=== PATIENT | male | born 1995 | race Caucasian/White ===

== ENCOUNTER 2017-03-12 20:03 | Emergency (ER) | payer MEDICAID, OTHER ==
[~2017-03-12] VITALS: Ht 188 cm; Wt 82.3 kg
[~2017-03-12 20:03] MED LIST: CARB200 PO; FLON0.053; LITH450 PO; MONT10TA2 PO
[2017-03-12 20:12] VITALS: BP 172/92; PULSE 110; RESP 22; TEMP 98.1; O2SAT 98
[2017-03-12] MEDS ORDERED: LORazepam 1 MG TAB PO ONE (20:30)
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
[2017-03-12] MEDS ORDERED: VIST25CA PO (20:54)
[2017-03-12 20:59] VITALS: BP 112/61; PULSE 92; RESP 18; TEMP 98.2; O2SAT 98
== END 2017-03-12 21:12 | disposition home or self-care (01) ==
LOC: PHED 20:03
DX: S00.01XA Abrasion of scalp, initial encounter (principal); T14.8XXA Other injury of unspecified body region, initial encounter; F41.9 Anxiety disorder, unspecified; R00.0 Tachycardia, unspecified; F98.8 Other specified behavioral and emotional disorders with onset usually occurring in childhood and adolescence; F31.9 Bipolar disorder, unspecified; Z72.0 Tobacco use; Y04.2XXA Assault by strike against or bumped into by another person, initial encounter
CPT/HCPCS: 99283

== ENCOUNTER → 2017-06-22 | Outpatient (CLI) | payer OTHER ==
[~2017-06-22] MED LIST changes: -CARB200 PO; -FLON0.053; -LITH450 PO; -MONT10TA2 PO; +VIST25CA PO
--- NOTE | 2017-06-23 13:12 | EKG ---
Date Performed: 06/22/2017 Time Performed: 15:29:26 PTAGE: 21 years EKG: Sinus rhythm NORMAL ECG PREVIOUS TRACING : 05/15/2011 20.20 DOCTOR: Devon Lira Interpretating Date/Time 06/23/2017 13:11:46
== END ==
LOC: CLAB 15:12
PROVIDERS: ATTEND Psychiatry & Neurology Child & Adolescent Psychiatry
DX: F31.62 Bipolar disorder, current episode mixed, moderate (principal)
CPT/HCPCS: 93005

== ENCOUNTER → 2017-06-23 | Outpatient (CLI) | payer OTHER ==
[2017-06-23 11:44] LABS: AUTOMATED NEUTROPHIL # 2.7 TH/MM3 (1.8-7.7); BASOPHIL % 0.3 % (0.0-2.0); EOSINOPHIL # 0.2 TH/MM3 (0-0.4); EOSINOPHIL % 3.2 % (0.0-4.0); HEMATOCRIT 45.3 % (39.0-51.0); HEMOGLOBIN 15.2 GM/DL (13.0-17.0); LYMPH % 51.9 % (9.0-44.0); LYMPHOCYTE # 3.8 TH/MM3 (1.0-4.8); MEAN CELL VOLUME 87.9 FL (80.0-100.0); MEAN CORPUSCULAR HEMOGLOBIN 29.5 PG (27.0-34.0); MEAN CORPUSCULAR HGB CONC 33.5 % (32.0-36.0); MEAN PLATELET VOLUME 7.6 FL (7.0-11.0); MONO % 7.8 % (0.0-8.0); MONOCYTE # 0.6 TH/MM3 (0-0.9); NEUT % 36.8 % (16.0-70.0); PLATELET COUNT 227 TH/MM3 (150-450); RED BLOOD COUNT 5.15 MIL/MM3 (4.50-5.90); RED CELL DISTRIBUTION WIDTH 12.5 % (11.6-17.2); WHITE BLOOD COUNT 7.3 TH/MM3 (4.0-11.0)
[2017-06-23 12:03] LABS: ALBUMIN 4.2 GM/DL (3.4-5.0); AST (GOT) 18 U/L (15-39); BICARBONATE 27.2 MEQ/L (21.0-32.0); BLOOD UREA NITROGEN 17 MG/DL (7-18); CALCIUM 9.1 MG/DL (8.5-10.1); CHLORIDE 106 MEQ/L (98-107); CREATININE 0.91 MG/DL (0.60-1.30); DIRECT BILIRUBIN ADULT 0.2 MG/DL (0.0-0.2); GLOMERULAR FILTRATION RATE 106 ML/MIN (>89); GLUCOSE,FASTING 93 MG/DL (74-99); SODIUM (NA) 140 MEQ/L (136-145)
[2017-06-23 12:04] LABS: ALT (GPT) 29 U/L (9-52); CHOLESTEROL 142 MG/DL (120-200); PHOSPHORUS 3.2 MG/DL (2.5-4.9)
[2017-06-23 12:12] LABS: ALKALINE PHOSPHATASE 73 U/L (45-117); CHOLESTEROL/ HDL RATIO 3.01 RATIO; HDL CHOLESTEROL 47.1 MG/DL (40.0-60.0); LDL CHOLESTEROL 74 MG/DL (0-99); TOTAL BILIRUBIN ADULT 1.3 MG/DL (0.2-1.0); TOTAL PROTEIN 7.5 GM/DL (6.4-8.2); TRIGLYCERIDES 104 MG/DL (42-150)
[2017-06-23 20:43] LABS: HEMOGLOBIN A1C 4.9 % (4.3-6.0)
== END ==
LOC: CLAB 11:14
PROVIDERS: ATTEND Psychiatry & Neurology Child & Adolescent Psychiatry
DX: F31.62 Bipolar disorder, current episode mixed, moderate (principal)
CPT/HCPCS: 36415; 80053; 80061; 80307; 82248; 82306; 83036; 84100; 84439; 84443; 85025

== ENCOUNTER 2017-07-29 03:08 | Inpatient (IN) | payer MEDICAID, OTHER ==
[~2017-07-29] VITALS: Ht 190.5 cm; Wt 93.2 kg
[2017-07-29] MEDS ORDERED: SODIUM CHLOR 0.9% 1000 ML INJ 1,000 ML IV ONE ×2 (03:23→11:15)
[2017-07-29 03:25] VITALS: BP 135/74; PULSE 116; RESP 17; TEMP 97.4; O2SAT 97
[2017-07-29] MEDS ORDERED: ONDANSETRON ODT 4 MG TAB PO ONE (03:30)
[2017-07-29] MEDS ORDERED: SODIUM CHLORIDE 0.9% FLUSH 10 ML FLUSH IVF PRN (03:30)
[2017-07-29] MEDS ORDERED: SERO100T PO (03:37)
[2017-07-29 03:56] LABS: AUTOMATED NEUTROPHIL # 2.6 TH/MM3 (1.8-7.7); BASOPHIL % 0.2 % (0.0-2.0); EOSINOPHIL # 0.2 TH/MM3 (0-0.4); EOSINOPHIL % 2.7 % (0.0-4.0); HEMOGLOBIN 14.3 GM/DL (13.0-17.0); LYMPH % 57.3 % (9.0-44.0); LYMPHOCYTE # 4.5 TH/MM3 (1.0-4.8); MEAN CELL VOLUME 88.8 FL (80.0-100.0); MEAN CORPUSCULAR HEMOGLOBIN 30.2 PG (27.0-34.0); MEAN PLATELET VOLUME 7.7 FL (7.0-11.0); MONO % 6.3 % (0.0-8.0); MONOCYTE # 0.5 TH/MM3 (0-0.9); NEUT % 33.5 % (16.0-70.0); PLATELET COUNT 210 TH/MM3 (150-450); RED BLOOD COUNT 4.73 MIL/MM3 (4.50-5.90); RED CELL DISTRIBUTION WIDTH 12.8 % (11.6-17.2); WHITE BLOOD COUNT 7.9 TH/MM3 (4.0-11.0)
[2017-07-29 04:11] LABS: ALBUMIN 4.1 GM/DL (3.4-5.0); ALT (GPT) 32 U/L (12-78); AST (GOT) 23 U/L (15-37); BICARBONATE 24.8 MEQ/L (21.0-32.0); BLOOD UREA NITROGEN 9 MG/DL (7-18); CALCIUM 8.1 MG/DL (8.5-10.1); CHLORIDE 108 MEQ/L (98-107); CREATININE 0.83 MG/DL (0.60-1.30); GLOMERULAR FILTRATION RATE 117 ML/MIN (>89); GLUCOSE,RANDOM 123 MG/DL (74-106); SODIUM (NA) 143 MEQ/L (136-145)
[2017-07-29 04:12] LABS: ALKALINE PHOSPHATASE 62 U/L (45-117); TOTAL BILIRUBIN ADULT 0.6 MG/DL (0.2-1.0); TOTAL PROTEIN 7.4 GM/DL (6.4-8.2)
[2017-07-29 04:14] LABS: ACETAMINOPHEN LESS THAN 2.0 MCG/ML (10.0-30.0)
[2017-07-29 04:27] VITALS: O2SAT 97
[2017-07-29 04:38] VITALS: BP 130/78; PULSE 96; RESP 16; O2SAT 100
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
[2017-07-29 06:00] VITALS: BP 114/57; PULSE 86; RESP 15; O2SAT 97
--- NOTE | 2017-07-29 07:14 | PD ---
Physical Exam Narrative Received sign out from De Souza for waiting on sobriety. Nurse brought ECGs to nd that were done on arrival and approx 2 hours later as there wqs concern for MEGA. Sent a troponin and evaluated patient. He is sleeping, vitals are stable, and he denies chest pain. 0832: Troponin within normal limits. 1205: Patient admitted to psychiatry. Data Data Last Documented VS Vital Signs Date Time Temp Pulse Resp B/P (MAP) Pulse Ox O2 Delivery O2 Flow Rate FiO2 07/29/17 10:00 80 14 111/55 (73) 98 Room Air 07/29/17 03:25 97.4 Orders Orders Electrocardiogram (07/29/17 03:23) Complete Blood Count With Diff (07/29/17 03:23) Comprehensive Metabolic Panel (07/29/17 03:23) Prothrombin Time / Inr (Pt) (07/29/17 03:23) Act Partial Throm Time (Ptt) (07/29/17 03:23) Iv Access Insert/Monitor (07/29/17 03:23) Ecg Monitoring (07/29/17 03:23) Oximetry (07/29/17 03:23) Sodium Chloride 0.9% Flush (Ns Flush) (07/29/17 03:30) Sodium Chlor 0.9% 1000 Ml Inj (Ns 1000 M (07/29/17 03:23) Drug Screen, Random Urine (07/29/17 03:23) Alcohol (Ethanol) (07/29/17 03:23) Salicylates (Aspirin) (07/29/17 03:23) Tylenol (Acetaminophen) (07/29/17 03:23) Ondansetron Odt (Zofran Odt) (07/29/17 03:30) Psych Screen (07/29/17 03:23) Troponin I (07/29/17 07:11) Electrocardiogram (07/29/17 05:46) Admit Order (Ed Use Only) (07/29/17 11:14) Admit To Inpatient Psych (07/29/17 ) Code Status (07/29/17 11:14) Vital Signs (Adult) ROWAN.Q12H.[id number] (07/29/17 11:14) Activity Oob Ad Chelsie (07/29/17 11:14) Level Of Observation (Psych) (07/29/17 11:14) Diet Regular Basic (07/29/17 Lunch) Acetaminophen (Tylenol) (07/29/17 11:15) Magnesium Hydroxide Liq (Milk Of Magnesi (07/29/17 11:15) Al-Mag Hy-Si 40-40-4 Mg/Ml Liq (Mag-Al P (07/29/17 11:15) Hydroxyzine Hcl (Atarax) (07/29/17 11:15) Basic Metabolic Panel (Bmp) (07/30/17 06:00) Lipid Profile (07/30/17 06:00) Hemoglobin (Hgb) A1c (07/30/17 06:00) Consult Hospitalist (07/29/17 ) Sodium Chlor 0.9% 1000 Ml Inj (Ns 1000 M (07/29/17 11:15) Ondansetron Odt (Zofran Odt) (07/29/17 11:15) Labs Laboratory Tests Test 07/29/17 03:35 07/29/17 05:20 07/29/17 07:35 White Blood Count 7.9 TH/MM3 Red Blood Count 4.73 MIL/MM3 Hemoglobin 14.3 GM/DL Hematocrit 42.0 % Mean Corpuscular Volume 88.8 FL Mean Corpuscular Hemoglobin 30.2 PG Mean Corpuscular Hemoglobin Concent 34.0 % Red Cell Distribution Width 12.8 % Platelet Count 210 TH/MM3 Mean Platelet Volume 7.7 FL Neutrophils (%) (Auto) 33.5 % Lymphocytes (%) (Auto) 57.3 % Monocytes (%) (Auto) 6.3 % Eosinophils (%) (Auto) 2.7 % Basophils (%) (Auto) 0.2 % Neutrophils # (Auto) 2.6 TH/MM3 Lymphocytes # (Auto) 4.5 TH/MM3 Monocytes # (Auto) 0.5 TH/MM3 Eosinophils # (Auto) 0.2 TH/MM3 Basophils # (Auto) 0.0 TH/MM3 CBC Comment DIFF FINAL Differential Comment Prothrombin Time 10.0 SEC Prothromb Time International Ratio 1.0 RATIO Activated Partial Thromboplast Time 24.0 SEC Blood Urea Nitrogen 9 MG/DL Creatinine 0.83 MG/DL Random Glucose 123 MG/DL Total Protein 7.4 GM/DL Albumin 4.1 GM/DL Calcium Level 8.1 MG/DL Alkaline Phosphatase 62 U/L Aspartate Amino Transf (AST/SGOT) 23 U/L Alanine Aminotransferase (ALT/SGPT) 32 U/L Total Bilirubin 0.6 MG/DL Sodium Level 143 MEQ/L Potassium Level 3.3 MEQ/L Chloride Level 108 MEQ/L Carbon Dioxide Level 24.8 MEQ/L Anion Gap 10 MEQ/L Estimat Glomerular Filtration Rate 117 ML/MIN Salicylates Level LESS THAN 1.7 MG/DL Acetaminophen Level LESS THAN 2.0 MCG/ML Ethyl Alcohol Level 208 MG/DL Urine Opiates Screen NEG Urine Barbiturates Screen NEG Urine Amphetamines Screen NEG Urine Benzodiazepines Screen NEG Urine Cocaine Screen NEG Urine Cannabinoids Screen NEG Troponin I LESS THAN 0.02 NG/ML MDM Supervised Visit with AMOR: No Diagnosis Primary Impression: Antipsychotic overdose Qualified Codes: T43.502A - Poisoning by unspecified antipsychotics and neuroleptics, intentional self-harm, initial encounter Additional Impression: Suicidal behavior Qualified Codes: T14.91XA - Suicide attempt, initial encounter Admitting Information Admitting Physician Requests: Admit Condition: Stable Nallely Ochoa MD July 29, 2017 07:14
[2017-07-29 10:00] VITALS: BP 111/55; PULSE 80; RESP 14; O2SAT 98
[2017-07-29] MEDS ORDERED: hydrOXYzine HCL 50 MG TAB PO PRN (11:15)
[2017-07-29] MEDS ORDERED: ACETAMINOPHEN 325 MG TAB PO PRN (11:15)
[2017-07-29] MEDS ORDERED: MAGNESIUM HYDROXIDE SUSP 30 ML CUP PO PRN (11:15)
[2017-07-29] MEDS ORDERED: ONDANSETRON ODT 4 MG TAB PO PRN (11:15)
[2017-07-29] MEDS ORDERED: ALUMINUM/MAGNESIUM/SIMETH 30 ML CUP PO PRN (11:15)
--- NOTE | 2017-07-29 11:42 | PD ---
History of Present Illness Chief Complaint: OD/ Ingestion Time Seen by Provider: 10:45 Travel History International Travel<30 Days: No Contact w/Intl Traveler<30days: No Known affected area: No Legal Status Legal Status: Gomez Act Gomez Act Signed By: Angel Dempsey History of Present Illness: This is a 22 year old single, male who is brought in under a Gomez act from [place] [employer] for a suicide attempt by overdose. Patient is well-known to this facility has had an extensive history. His most recent psychiatric inpatient admission at this facility was March 27 - April 01, 2015. Reviewed electronic medical records, labs, and discussed case with staff. Patient was evaluated in his room in the ED main. Patient was found to still be lethargic. He was unable to be assessed due to his current condition. The nurse advises that his vital signs have been stable. Poison control's recommendation was an EKG 2 hours status post after the initial EKG. Both EKGs are within normal limits. According to the electronic medical record the patient has had a previous suicidal attempt for which she was seen at this facility. He also has a several psychiatric diagnoses. Found in his possession was a empty prescription bottle that was dated 08/07/2017 for 15 100 mg Seroquel tablets. The bottle is empty. Additionally, he had 8.208 blood alcohol level. PFSH Past Medical History ADD: Yes ADHD: No Bipolar Disorder: Yes Cancer: No Cardiovascular Problems: No Developmental Delay: No Diabetes: No Diminished Hearing: No Endocrine: No Genitourinary: No Headaches: No Immune Disorder: No Musculoskeletal: No Neurologic: No Psychiatric: Yes (multiple admissions to [facility] ) Reproductive: No Respiratory: No Immunizations Current: Yes Migraines: No Seizures: No Thyroid Disease: No Ulcer: No Influenza Vaccination: Yes PNEUMOCCOCAL Vaccine (Year): 2 Past Surgical History Appendectomy: No Cholecystectomy: No Other Surgery: No Psychiatric History Psychiatric History Extensive history. Hx Psychiatric Treatment: Patient has a history of psychiatric treatment starting with [facility]. Patient has had multiple admissions. Patient saw [facility] for therapy and Dr. Jasmine. History of Inpatient Treatment: Yes Social History Hx Alcohol Use: Yes Hx Tobacco Use: Yes (1/2 PPD) Hx Substance Use: Yes (States he smokes marijauna, and use xanax) Substance Use Type: Marijuana, Benzos (Valium,Xanax) Hx of Substance Use Treatment: No Allergies-Medications (Allergen,Severity, Reaction): Coded Allergies: No Known Allergies (Verified Adverse Reaction, Unknown, 07/29/17) Reported Meds & Prescriptions Reported Meds & Active Scripts Active Reported Seroquel (Quetiapine Fumarate) 100 Mg Tab 100 Mg PO HS Mental Status Examination Consciousness: Lethargic Speech: Incoherent MDM Medical Decision Making Medical Record Reviewed: Yes Assessment/Plan This is a 22-year-old single, male who presents under Gomez act to this facility for an attempted suicide by overdose. Upon examination this morning patient is still lethargic with slurred speech. I am unable to assess him fully. He does however, have in his possession an empty bottle of 15 tablets Seroquel which was filled yesterday. The bottle is now empty. Blood alcohol level was 0.208. Given the seriousness of this patient's attempt combined with his extensive psychiatric history, he continues to meet Gomez act criteria and will be admitted to [facility] for further evaluation and treatment as necessary. Request HC Surrog/Guard Advoc?: Yes Orders Orders Electrocardiogram (07/29/17 03:23) Complete Blood Count With Diff (07/29/17 03:23) Comprehensive Metabolic Panel (07/29/17 03:23) Prothrombin Time / Inr (Pt) (07/29/17 03:23) Act Partial Throm Time (Ptt) (07/29/17 03:23) Iv Access Insert/Monitor (07/29/17 03:23) Ecg Monitoring (07/29/17 03:23) Oximetry (07/29/17 03:23) Sodium Chloride 0.9% Flush (Ns Flush) (07/29/17 03:30) Sodium Chlor 0.9% 1000 Ml Inj (Ns 1000 M (07/29/17 03:23) Drug Screen, Random Urine (07/29/17 03:23) Alcohol (Ethanol) (07/29/17 03:23) Salicylates (Aspirin) (07/29/17 03:23) Tylenol (Acetaminophen) (07/29/17 03:23) Ondansetron Odt (Zofran Odt) (07/29/17 03:30) Psych Screen (07/29/17 03:23) Troponin I (07/29/17 07:11) Electrocardiogram (07/29/17 05:46) Admit Order (Ed Use Only) (07/29/17 11:14) Admit To Inpatient Psych (07/29/17 ) Code Status (07/29/17 11:14) Vital Signs (Adult) ROWAN.Q12H.E (07/29/17 11:14) Activity Oob Ad Chelsie (07/29/17 11:14) Level Of Observation (Psych) (07/29/17 11:14) Diet Regular Basic (07/29/17 Lunch) Acetaminophen (Tylenol) (07/29/17 11:15) Magnesium Hydroxide Liq (Milk Of Magnesi (07/29/17 11:15) Al-Mag Hy-Si 40-40-4 Mg/Ml Liq (Mag-Al P (07/29/17 11:15) Hydroxyzine Hcl (Atarax) (07/29/17 11:15) Basic Metabolic Panel (Bmp) (07/30/17 06:00) Lipid Profile (07/30/17 06:00) Hemoglobin (Hgb) A1c (07/30/17 06:00) Consult Hospitalist (07/29/17 ) Sodium Chlor 0.9% 1000 Ml Inj (Ns 1000 M (07/29/17 11:15) Ondansetron Odt (Zofran Odt) (07/29/17 11:15) Results Vital Signs Date Time Temp Pulse Resp B/P (MAP) Pulse Ox O2 Delivery O2 Flow Rate FiO2 07/29/17 10:00 80 14 111/55 (73) 98 Room Air 07/29/17 06:00 86 15 114/57 (76) 97 Room Air 07/29/17 04:38 96 16 130/78 (95) 100 Room Air 07/29/17 04:27 97 07/29/17 03:25 97.4 116 17 135/74 (94) 97 Laboratory Tests Test 07/29/17 03:35 07/29/17 05:20 07/29/17 07:35 White Blood Count 7.9 Red Blood Count 4.73 Hemoglobin 14.3 Hematocrit 42.0 Mean Corpuscular Volume 88.8 Mean Corpuscular Hemoglobin 30.2 Mean Corpuscular Hemoglobin Concent 34.0 Red Cell Distribution Width 12.8 Platelet Count 210 Mean Platelet Volume 7.7 Neutrophils (%) (Auto) 33.5 Lymphocytes (%) (Auto) 57.3 Monocytes (%) (Auto) 6.3 Eosinophils (%) (Auto) 2.7 Basophils (%) (Auto) 0.2 Neutrophils # (Auto) 2.6 Lymphocytes # (Auto) 4.5 Monocytes # (Auto) 0.5 Eosinophils # (Auto) 0.2 Basophils # (Auto) 0.0 CBC Comment DIFF FINAL Differential Comment Prothrombin Time 10.0 Prothromb Time International Ratio 1.0 Activated Partial Thromboplast Time 24.0 Blood Urea Nitrogen 9 Creatinine 0.83 Random Glucose 123 Total Protein 7.4 Albumin 4.1 Calcium Level 8.1 Alkaline Phosphatase 62 Aspartate Amino Transf (AST/SGOT) 23 Alanine Aminotransferase (ALT/SGPT) 32 Total Bilirubin 0.6 Sodium Level 143 Potassium Level 3.3 Chloride Level 108 Carbon Dioxide Level 24.8 Anion Gap 10 Estimat Glomerular Filtration Rate 117 Salicylates Level LESS THAN 1.7 Acetaminophen Level LESS THAN 2.0 Ethyl Alcohol Level 208 Urine Opiates Screen NEG Urine Barbiturates Screen NEG Urine Amphetamines Screen NEG Urine Benzodiazepines Screen NEG Urine Cocaine Screen NEG Urine Cannabinoids Screen NEG Troponin I LESS THAN 0.02 Diagnosis Primary Impression: Moderately severe major depressive disorder, single episode Additional Impression: Suicide attempt by other psychotropic drug overdose Admitting Information Admitting Physician Requests: Admit Problem Qualifiers Brigitte Fry July 29, 2017 11:42
[2017-07-29] MEDS ORDERED: POTASSIUM CHLORIDE 10 MEQ CONTROLLED RELEASE TAB PO ONE (15:15)
--- NOTE | 2017-07-29 15:48 | PD.CONS ---
HPI Service [facility] Hospitalists Consult Requested By Psychiatric service Reason for Consult Medical management s/p Seroquel OD Primary Care Physician Kim Sims MD Diagnoses: History of Present Illness This is a 22 yo male with a PMHX significant for bipolar disorder and ADD who presented to [facility] ED as Gomez Act brought in from the [place] police dept as a suicide attempt via intentional Seroquel overdose and has been admitted to inpatient psychiatry. Hospitalist services have been consulted for medical management. Patient admits to ingesting 15 100mg tablets of Seroquel and drinking an excessive amount of alcohol. Patient reports receiving prescription yesterday from [facility]. Patient was unable to tell me the exact amount of alcohol he drank but remembers consuming 10 cans of strawberry ritas and 2 tall boys. His alcohol level was 208 in the ED. Patient denies that he was trying to kill himself just states he felt sad. Poison control's recommendation was two EKG within 2 hours of each other both of which are within normal limits. Patient reports he feels a little groggy otherwise has no complaints. He denies any headache or vision changes. He denies any chest pain or dyspnea. He denies any nausea, vomiting or abdominal pain. He is urinating without any difficulties. Review of Systems Except as stated in HPI: all other systems reviewed are Neg Past Family Social History Allergies: Coded Allergies: No Known Allergies (Verified Adverse Reaction, Unknown, 07/29/17) Past Medical History Bipolar d/o ADD Past Surgical History Patient denies any previous surgical history Reported Medications Seroquel (Quetiapine Fumarate) 100 Mg Tab 100 Mg PO HS Active Ordered Medications Current Medications Medications (Trade) Dose Ordered Sig/Triston Route Start Time Stop Time Status Last Admin (NS Flush) 2 ml UNSCH PRN IVF 07/29/17 03:30 07/29/17 07:42 (Tylenol) 650 mg Q4H PRN PO 07/29/17 11:15 (Milk Of Magnesia Liq) 30 ml DAILY PRN PO 07/29/17 11:15 (Mag-Al Plus Susp Liq) 30 ml Q6H PRN PO 07/29/17 11:15 (Atarax) 50 mg Q6H PRN PO 07/29/17 11:15 (Zofran Odt) 4 mg Q6H PRN PO 07/29/17 11:15 (KCl) 40 meq ONCE ONCE PO 07/29/17 15:15 07/29/17 15:16 Family History Mother, CHF, bipolar d/o Social History Patient reports smoking 1 to 1 1/2 ppd since the age of 16 but quit in Mar of this year. Patient admits to intermittent alcohol use and binge drinking. He reports occasional marijuana and benzodiazepine use. Physical Exam Vital Signs Vital Signs Date Time Temp Pulse Resp B/P (MAP) Pulse Ox O2 Delivery O2 Flow Rate FiO2 07/29/17 10:00 80 14 111/55 (73) 98 Room Air 07/29/17 06:00 86 15 114/57 (76) 97 Room Air 07/29/17 04:38 96 16 130/78 (95) 100 Room Air 07/29/17 04:27 97 07/29/17 03:25 97.4 116 17 135/74 (94) 97 Physical Exam GENERAL: This is a well-nourished, well-developed young male patient, in no apparent distress. Awake and alert. SKIN: No rashes, ecchymoses or lesions. Cool and dry. HEAD: Atraumatic. Normocephalic. No temporal or scalp tenderness. EYES: Pupils equal round and reactive. Extraocular motions intact. No scleral icterus. No injection or drainage. ENT: Nose without bleeding or purulent drainage. Throat without erythema, tonsillar hypertrophy or exudate. Uvula midline. Airway patent. NECK: Trachea midline. No lymphadenopathy. Supple, nontender, no meningeal signs. CARDIOVASCULAR: Regular rate and rhythm without murmurs, gallops, or rubs. RESPIRATORY: Clear to auscultation. Breath sounds equal bilaterally. No wheezes , rales, or rhonchi. GASTROINTESTINAL: Abdomen soft, non-tender, nondistended. No hepato-splenomegaly , or palpable masses. No guarding. MUSCULOSKELETAL: Extremities without clubbing, cyanosis, or edema. No calf tenderness. NEUROLOGICAL: Awake and alert. Cranial nerves II through XII grossly intact. Motor and sensory grossly within normal limits. No focal neurologic findings appreciated. Normal speech. Laboratory Laboratory Tests Test 07/29/17 03:35 07/29/17 05:20 07/29/17 07:35 White Blood Count 7.9 Red Blood Count 4.73 Hemoglobin 14.3 Hematocrit 42.0 Mean Corpuscular Volume 88.8 Mean Corpuscular Hemoglobin 30.2 Mean Corpuscular Hemoglobin Concent 34.0 Red Cell Distribution Width 12.8 Platelet Count 210 Mean Platelet Volume 7.7 Neutrophils (%) (Auto) 33.5 Lymphocytes (%) (Auto) 57.3 Monocytes (%) (Auto) 6.3 Eosinophils (%) (Auto) 2.7 Basophils (%) (Auto) 0.2 Neutrophils # (Auto) 2.6 Lymphocytes # (Auto) 4.5 Monocytes # (Auto) 0.5 Eosinophils # (Auto) 0.2 Basophils # (Auto) 0.0 CBC Comment DIFF FINAL Differential Comment Prothrombin Time 10.0 Prothromb Time International Ratio 1.0 Activated Partial Thromboplast Time 24.0 Blood Urea Nitrogen 9 Creatinine 0.83 Random Glucose 123 Total Protein 7.4 Albumin 4.1 Calcium Level 8.1 Alkaline Phosphatase 62 Aspartate Amino Transf (AST/SGOT) 23 Alanine Aminotransferase (ALT/SGPT) 32 Total Bilirubin 0.6 Sodium Level 143 Potassium Level 3.3 Chloride Level 108 Carbon Dioxide Level 24.8 Anion Gap 10 Estimat Glomerular Filtration Rate 117 Salicylates Level LESS THAN 1.7 Acetaminophen Level LESS THAN 2.0 Ethyl Alcohol Level 208 Urine Opiates Screen NEG Urine Barbiturates Screen NEG Urine Amphetamines Screen NEG Urine Benzodiazepines Screen NEG Urine Cocaine Screen NEG Urine Cannabinoids Screen NEG Troponin I LESS THAN 0.02 Result Diagram: 07/29/17 0335 07/29/17334 Assessment and Plan Assessment and Plan 22 yo male with a PMHX significant for bipolar disorder and ADD who presented to [facility] ED as Gomez Act brought in from the [place] police dept as a suicide attempt via intentional Seroquel overdose and has been admitted to inpatient psychiatry. Hospitalist services have been consulted for medical management. Bipolar disorder ADD Suicide attempt, under Gomez Act -Management per psychiatric team Seroquel OD EKG x 2, no e/o of QT prolongation, NSR -monitor for anticholinergic effects, hypotension, NMS Polysubstance abuse -discussed importance of cessation with patient Hypokalemia K 3.3 -po repletion ordered -am labs to monitor replacement Vitamin D deficiency Vitamin D level 18.4 on 06/23/17 -start patient on Vit D replacement daily DVT prophylaxis -patient is ambulatory Discussed Condition With patient, Danita Stewart July 29, 2017 15:48
[2017-07-29 16:27] VITALS: BP 122/67; PULSE 90; RESP 18; TEMP 98.7; O2SAT 100
--- NOTE | 2017-07-29 20:06 | EKG ---
Date Performed: 07/29/2017 Time Performed: 03:33:47 PTAGE: 22 years EKG: SINUS TACHYCARDIA NONSPECIFIC T-WAVE ABNORMALITY When compared to previous travcing, ST-T w ave changes are New. ABNORMAL RHYTHM ECG PREVIOUS TRACING : 06/22/2017 15.29 DOCTOR: Eduardo Mcarthur Interpretating Date/Time 07/29/2017 20:05:22
--- NOTE | 2017-07-29 20:09 | EKG ---
Date Performed: 07/29/2017 Time Performed: 05:46:43 PTAGE: 22 years EKG: Sinus rhythm NONSPECIFIC ST & T-WAVE ABNORMALITY When compared to previous tracing, slight increase in ST Elevati on in the anterior leads, probably nonspecific, possible Repolarization. Clinical correlation needed. BORDERLINE ECG PREVIOUS TRACING : 07/29/2017 03.33.47 DOCTOR: Eduardo Mcarthur Interpretating Date/Time 07/29/2017 20:08:07
[2017-07-30 05:30] VITALS: BP 123/59; PULSE 62; RESP 16; TEMP 97.9; O2SAT 99
[2017-07-30 08:53] LABS: BICARBONATE 26.7 MEQ/L (21.0-32.0); BLOOD UREA NITROGEN 9 MG/DL (7-18); CALCIUM 9.2 MG/DL (8.5-10.1); CHLORIDE 105 MEQ/L (98-107); CHOLESTEROL 159 MG/DL (120-200); CREATININE 0.89 MG/DL (0.60-1.30); GLOMERULAR FILTRATION RATE 108 ML/MIN (>89); GLUCOSE,RANDOM 96 MG/DL (74-106); HDL CHOLESTEROL 45.4 MG/DL (40.0-60.0); LDL CHOLESTEROL 69 MG/DL (0-99); SODIUM (NA) 142 MEQ/L (136-145); TRIGLYCERIDES 222 MG/DL (42-150)
[2017-07-30] MEDS ORDERED: CHOLECALCIFEROL (VIT D3) 1000 UNIT TAB PO SCH (09:00)
--- NOTE | 2017-07-30 09:37 | HHI.HP ---
Provisional Diagnosis Admission Date July 29, 2017 at 11:31 [place] I. Adjustment disorder with mixed disturbances of emotion and conduct, alcohol intoxication, history of bipolar disorder Certification of Person's Competence To Provide Express and Informed Consent I have personally examined Jesus Vilchis , a person being served at [facility] on, July 30, 2017 09:22. Express and informed consent means consent voluntarily given in writing, by a competent person, after sufficient explanation and disclosure of the subject matter involved to enable the person to make a knowing and willful decision without any element of force, fraud, deceit, duress, or other form of constraint or coercion. This person is 18 years of age or older, is not now known to be incompetent to consent to treatment with a guardian advocate, and does not have a health care surrogate or proxy currently making medical treatment decisions. I have found this person to be one of the following: [xxxx] Competent to provide express and informed consent, as defined above, for voluntary admission to this facility and is competent to provide express and informed consent for treatment. He/she has the consistent capacity to make well reasoned, willful, and knowing decisions concerning his or her medical or mental health treatment. The person fully and consistently understands the purpose of the admission for examination/placement and is fully capable of personally exercising all rights assured under [place] Incompetent to provide express and informed consent to voluntary admission, and this is incompetent to provide express and informed consent to treatment. The person must be transferred to involuntary status and a petition for a guardian advocate filed with the Circuit Court. [] Refusing to provide express and informed consent to voluntary admission but is competent to provide express and informed consent for treatment. The person must be discharged or transferred to involuntary status. Form shall be completed within 24 hours of a person's arrival at the receiving facility and filed in the clinical record of each person: 1. Admitted on a voluntary basis 2. Permitted to provide express and informed consent to his/her own treatment 3. Allowed to transfer from involuntary to voluntary status 4. Prior to permitting a person to consent to his or her own treatment after having been previously found incompetent to consent to treatment. History of Present Illness Capacity: Has Capacity HPI Patient is a 22-year-old white male comes here under a Gomez act by the [place] [employer] dated 07/28/2017 at 031 4 AM that document reviewed as essentially stating Verena called 911 after ingesting 15 Seroquel pills in an attempt to end his life. He fought with his girlfriend who left prior to my arrival. During my investigation he admitted he wanted to "" several times. Patient was seen screen in the ED blood alcohol level of 208 with a negative urine toxicology. Of interest patient was a patient of mine in our outpatient clinic by last visit with him was in September 2015. At the present time patient is seen [facility] mental health with Dr. Francis for his being prescribed Seroquel. Patient states he just turned 22 years of age and decided to get drunk. His girlfriend was with him. He became somewhat rowdy and got into an argument with his girlfriend was also drinking. In an acting out gesture he impulsively took more than prescribed Seroquel. He states he immediately regretted it and called 911. At the present time patient sitting quietly in his room patient seen with floor staff, he is alert oriented calm and cooperative he denies suicidality and homicidality voices or visions. He states she has learned from this experience. He is able contract to do no harm able to contract to remain abstinent from alcohol or other drugs. He is employed as a host at a local restaurant. He lives with his mother. He does have a 4 year relationship with a young lady who lives in [facility] and the appear to be fairly good with each other. At this time patient does not meet Gomez act criteria lift Gomez act allow the patient to be discharged to himself. He may continue to follow up with [facility], may continue to take his scheduled medications, absolute abstinence. In perhaps referral to [facility] outpatient involuntary substance abuse assessment Review of Systems Except as stated in HPI: all other systems reviewed are Neg Past Psych History Psychological trauma history Patient denies Violence risk - others (6 mos) Low Violence risk - self (6 mos) Low Substance Abuse History Drugs/Alcohol past 12 months Patient history of marijuana use, low urine toxicology negative, active alcohol abuser Past Family Social History Coded Allergies: No Known Allergies (Verified Adverse Reaction, Unknown, 07/29/17) Reported Medications Quetiapine (Seroquel) 100 Mg Tab, 100 MG PO HS, #30 TAB 0 Refills 07/29/17 Discontinued Scripts Hydroxyzine Pamoate (Vistaril) 25 Mg Cap, 25 MG PO TID Y for ANXIETY, #12 CAP 0 Refills Prov:Nishant Blackwood MD 03/12/17 Current Medications Medications (Trade) Dose Ordered Sig/Triston Route Start Time Stop Time Status Last Admin (NS Flush) 2 ml UNSCH PRN IVF 07/29/17 03:30 07/29/17 07:42 (Tylenol) 650 mg Q4H PRN PO 07/29/17 11:15 (Milk Of Magnesia Liq) 30 ml DAILY PRN PO 07/29/17 11:15 (Mag-Al Plus Susp Liq) 30 ml Q6H PRN PO 07/29/17 11:15 (Atarax) 50 mg Q6H PRN PO 07/29/17 11:15 Future Hold (Zofran Odt) 4 mg Q6H PRN PO 07/29/17 11:15 (Vitamin D3) 1,000 units DAILY PO 07/30/17 09:00 Family Psych History Patient states mother has history of mood disorder Social History Patient lives with mother his date of the same girl 4 years Patient's Strengths (min. 2) Patient verbal able access healthcare cooperative Physical Exam Patient medically cleared ED exam reviewed and agreed with at the present time the patient sitting quietly in his room is in no acute distress, no respiratory distress, no complaints of chest pain, no complaints of abdominal pain. Patient moving all 4 extremities without difficulty no abnormal motor movements noted Vital Signs Vital Signs Date Time Temp Pulse Resp B/P (MAP) Pulse Ox O2 Delivery O2 Flow Rate FiO2 07/30/17 05:30 97.9 62 16 123/59 (80) 99 07/29/17 10:00 Room Air Lab Results Test 07/30/17 07:14 Blood Urea Nitrogen 9 MG/DL Creatinine 0.89 MG/DL Random Glucose 96 MG/DL Calcium Level 9.2 MG/DL Sodium Level 142 MEQ/L Potassium Level 3.8 MEQ/L Chloride Level 105 MEQ/L Carbon Dioxide Level 26.7 MEQ/L Anion Gap 10 MEQ/L Estimat Glomerular Filtration Rate 108 ML/MIN Triglycerides Level 222 MG/DL Cholesterol Level 159 MG/DL LDL Cholesterol 69 MG/DL HDL Cholesterol 45.4 MG/DL Cholesterol/HDL Ratio 3.50 RATIO 25-Hydroxy Vitamin D Total 17.4 ng/ML Mental Status Examination Appearance: Appropriate Consciousness: Alert Orientation: x4 Motor Activity: Normal gait Speech: Unremarkable Language: Adequate Fund of Knowledge: Adequate Attention and Concentration: Adequate Memory: Unremarkable Mood: Other (Euthymic, mildly dysphoric) Affect: Other (Good range and intensity) Thought Process & Associations: Intact Thought Content: Appropriate Hallucination Type: None Delusion Type: None Suicidal Ideation: No Suicidal Plan: No Suicidal Intention: No Homicidal Ideation: No Homicidal Plan: No Homicidal Intention: No Insight: Fair Judgment: Impulsive Assessment & Plan Problem List: (1) Alcohol intoxication ICD Codes: F10.929 - Alcohol use, unspecified with intoxication, unspecified (2) Adjustment disorder with mixed disturbance of emotions and conduct ICD Codes: F43.25 - Adjustment disorder with mixed disturbance of emotions and conduct (3) Bipolar II disorder ICD Codes: F31.81 - Bipolar II disorder Status: Acute Assessment & Plan Estimated LOS: days patient does not meet Gomez criteria [facility] act patient to be discharged to himself no Rx by me he may continue his own medications at home follow-up [facility]. Also refers to [facility] act outpatient substance abuse assessment Discharge Planning Return home with family Request HC Surrog/Guard Advoc?: No Nitish Cruz MD July 30, 2017 09:37
--- NOTE | 2017-07-30 09:41 | HHI.DS ---
Psychiatry Discharge Summary Inpatient Psychiatric care?: Yes Advance Directive: No Mental Health AdvanceDirective: No Health Care Proxy: No Admission Admission Date July 29, 2017 at 11:31 Admission Diagnosis: (1) Bipolar II disorder ICD Code: F31.81 - Bipolar II disorder (2) Adjustment disorder with mixed disturbance of emotions and conduct ICD Code: F43.25 - Adjustment disorder with mixed disturbance of emotions and conduct (3) Alcohol intoxication ICD Code: F10.929 - Alcohol use, unspecified with intoxication, unspecified Brief History Patient is a 22-year-old white male comes here under a Gomez act by the [place] [employer] dated 07/28/2017 at 031 4 AM that document reviewed as essentially stating Verena called 911 after ingesting 15 Seroquel pills in an attempt to end his life. He fought with his girlfriend who left prior to my arrival. During my investigation he admitted he wanted to "" several times. Patient was seen screen in the ED blood alcohol level of 208 with a negative urine toxicology. Of interest patient was a patient of mine in our outpatient clinic by last visit with him was in September 2015. At the present time patient is seen [facility] with Dr. Francis for his being prescribed Seroquel. Patient states he just turned 22 years of age and decided to get drunk. His girlfriend was with him. He became somewhat rowdy and got into an argument with his girlfriend was also drinking. In an acting out gesture he impulsively took more than prescribed Seroquel. He states he immediately regretted it and called 911. At the present time patient sitting quietly in his room patient seen with floor staff, he is alert oriented calm and cooperative he denies suicidality and homicidality voices or visions. He states she has learned from this experience. He is able contract to do no harm able to contract to remain abstinent from alcohol or other drugs. He is employed as a host at a local restaurant. He lives with his mother. He does have a 4 year relationship with a young lady who lives in [facility] and the appear to be fairly good with each other. At this time patient does not meet Gomez act criteria lift Gomez act allow the patient to be discharged to himself. He may continue to follow up with [facility], may continue to take his scheduled medications, absolute abstinence. In perhaps referral to [facility] outpatient involuntary substance abuse assessment Tobacco Use In Past 30 Days: Refused To Answer Alcohol Use: Monthly or Less Hospital Course Please see above note under brief history. Patient does not meet criteria are for inpatient psychiatric hospitalization. Thus will be discharged today. He denies suicidality homicidality voice or visions. Is able to contract to do no harm and to maintain sobriety. He is to follow up with Hospital mental health. Also get a further substance abuse assessment through outpatient [facility] Results Blood Pressure 123 / 59 Vital Signs Date Time Temp Pulse Resp B/P (MAP) Pulse Ox O2 Delivery O2 Flow Rate FiO2 07/30/17 05:30 97.9 62 16 123/59 (80) 99 07/29/17 10:00 Room Air Laboratory Tests Test 07/29/17 03:35 07/29/17 05:20 07/29/17 07:35 07/30/17 07:14 Lymphocytes (%) (Auto) 57.3 % (9.0-44.0) Activated Partial Thromboplast Time 24.0 SEC (24.3-30.1) Random Glucose 123 MG/DL (74-106) Calcium Level 8.1 MG/DL (8.5-10.1) Potassium Level 3.3 MEQ/L (3.5-5.1) Chloride Level 108 MEQ/L (98-107) Salicylates Level LESS THAN 1.7 MG/DL Acetaminophen Level LESS THAN 2.0 MCG/ML Ethyl Alcohol Level 208 MG/DL (0-5) Troponin I LESS THAN 0.02 NG/ML Triglycerides Level 222 MG/DL (42-150) 25-Hydroxy Vitamin D Total 17.4 ng/ML (30-100) Laboratory Results Test 07/30/17 07:14 Cholesterol Level 159 MG/DL (120-200) HDL Cholesterol 45.4 MG/DL (40.0-60.0) LDL Cholesterol 69 MG/DL (0-99) Triglycerides Level 222 MG/DL (42-150) Summary of Procedures None done Pending results at discharge: No Medications # of Antipsychotic meds at D/C: 0 Approp Antipsych med options 1 - Minimum of three failed multiple trials of monotherapy. 2 - Documented plan to taper to monotherapy due to previous use of multiple meds OR cross-taper in progress at D/C. 3 - Documentation of augmentation of Clozapine. 4 - Justification other than those listed in allowable values 1-3, document here : Discharge Discharge Date: July 30, 2017 Discharge Diagnosis: (1) Bipolar II disorder Diagnosis: Secondary ICD Code: F31.81 - Bipolar II disorder Status: Acute (2) Adjustment disorder with mixed disturbance of emotions and conduct Diagnosis: Principal ICD Code: F43.25 - Adjustment disorder with mixed disturbance of emotions and conduct (3) Alcohol intoxication Diagnosis: Secondary ICD Code: F10.929 - Alcohol use, unspecified with intoxication, unspecified Pt Condition on Discharge: Stable Discharge Disposition: Discharge Home Discharge Instructions Diet Instructions: As Tolerated, No Restrictions Activities you can perform: Regular-No Restrictions Scheduled Appointment: [facility] Discharge Time > 30 minutes Mental Status Examination Appearance: Appropriate Consciousness: Alert Orientation: x4 Motor Activity: Normal gait Speech: Unremarkable Language: Adequate Fund of Knowledge: Adequate Attention and Concentration: Adequate Memory: Unremarkable Mood: Other (Euthymic, mildly dysphoric) Affect: Other (Good range and intensity) Thought Process & Associations: Intact Thought Content: Appropriate Hallucination Type: None Delusion Type: None Suicidal Ideation: No Suicidal Plan: No Suicidal Intention: No Homicidal Ideation: No Homicidal Plan: No Homicidal Intention: No Insight: Fair Judgment: Impulsive Discharge/Advance Care Plan Health Problems: (1) Alcohol intoxication (2) Adjustment disorder with mixed disturbance of emotions and conduct (3) Bipolar II disorder Goals to promote your health * To prevent worsening of your condition and complications * To maintain your health at the optimal level Directions to meet your goals Take your medications as prescribed Follow your dietary instruction Follow activity as directed Keep your appointments as scheduled Take your immunizations and boosters as scheduled If your symptoms worsen call your PCP, if no PCP go to Urgent Care Center or Emergency Room For 24/ questions related to your inpatient stay or results of tests pending at discharge, please contact Dr. Nitish Cruz at Smoking is Dangerous to Your Health. Avoid second hand smoking Nitish Cruz MD July 30, 2017 09:41
[2017-07-30 16:13] LABS: HEMOGLOBIN A1C 4.9 % (4.3-6.0)
[2017-07-30] MEDS ORDERED: QUEtiapine FUMARATE 100 MG TAB PO SCH (21:00)
== END 2017-07-30 12:25 | disposition home or self-care (01) | DRG 885 ==
LOC: NEPC 03:08 → NEDA 11:31 → H260 15:40
PROVIDERS: ADMIT Psychiatry & Neurology Psychiatry; ATTEND Psychiatry & Neurology Psychiatry
DX: F31.81 Bipolar II disorder (principal); E55.9 Vitamin D deficiency, unspecified; E87.6 Hypokalemia; F10.929 Alcohol use, unspecified with intoxication, unspecified; F43.25 Adjustment disorder with mixed disturbance of emotions and conduct; Y90.7 Blood alcohol level of 200-239 mg/100 ml; T43.592A Poisoning by other antipsychotics and neuroleptics, intentional self-harm, initial encounter; F13.90 Sedative, hypnotic, or anxiolytic use, unspecified, uncomplicated; F12.90 Cannabis use, unspecified, uncomplicated; Z87.891 Personal history of nicotine dependence
CPT/HCPCS: 80048; 80053; 80061; 80307; 82306; 83036; 84484; 85025; 85610; 85730; 93005; J7030